=== PATIENT | female | born 1995 | race Caucasian/White ===

== ENCOUNTER → 2018-02-05 13:38 | Outpatient (CLI) | payer MEDICAID, SELFPAY | PROVIDERS: Visit Provider Obstetrics & Gynecology | DX: Z12.4 Encounter for screening for malignant neoplasm of cervix (principal) | CPT/HCPCS: 88175; G0145 ==

== ENCOUNTER → 2018-03-26 10:00 | Outpatient (CLI) | payer MEDICAID, SELFPAY ==
[2018-03-26 11:09] LABS: Hemoglobin 13.4 g/dl (12.0-15.0); Mean Corp Hgb Conc 33.5 g/gl (32-36); Mean Corpuscular Hgb 27.9 pg (27.0-32.0); Mean Corpuscular Volume 83.3 fL (81-99); Mean Platelet Vol. 10.1 fl (6.2-12.0); Platelet Count 238 K/mm3 (150-450); RBC Distribution Width CV 12.6 % (11.6-14.6); RBC Distribution Width SD 38.3 fl (35.1-43.9); White Blood Count 4.2 K/mm3 (4.4-11.0)
[2018-03-26 11:14] LABS: Scan Indicated on CBC? Y/N NO
[2018-03-26 11:56] LABS: Vitamin B12 473 pg/mL (211-911); Vitamin D,25 Hydroxy 29.6 ng/mL (29.95-100.01)
[2018-03-26 11:57] LABS: Free T3 2.6 pg/mL (2.18-3.98); T4 Free Direct 1.03 ng/dL (0.76-1.46); Thyroid Stim Hormone (TSH) 0.79 uIU/mL (0.358-3.74)
== END ==
PROVIDERS: Visit Provider Obstetrics & Gynecology
DX: R53.83 Other fatigue (principal)
CPT/HCPCS: 36415; 82306; 82607; 84439; 84443; 84481; 85027

== ENCOUNTER → 2020-12-07 | Outpatient (CLI) | payer MEDICAID, SELFPAY ==
[2020-12-10 03:07] LABS: Chlamydia By Nucleic Acid AMP Negative (Negative)
[2020-12-10 09:53] LABS: Gonococcus By Nucleic Acid AMP Negative (Negative)
[2020-12-10 15:34] LABS: HPV Reflexed? NOT INDICATED
== END | disposition home or self-care (01) ==
LOC: LABSPEC 13:54
PROVIDERS: Visit Provider Student in an Organized Health Care Education/Training Program
DX: Z12.4 Encounter for screening for malignant neoplasm of cervix (principal); Z11.3 Encounter for screening for infections with a predominantly sexual mode of transmission
CPT/HCPCS: 87491; 87591; 88175; G0145

== ENCOUNTER → 2020-12-21 12:04 | Outpatient (CLI) | payer MEDICAID, SELFPAY ==
[2020-12-21 13:58] LABS: Absolute Lymphocyte Count 1.12 X10^3/uL (0.83-4.51); Absolute Neutrophil Count 4.8 X10^3/uL (2.0-7.7); Basophil# 0.03 X10^3/uL; Basophil% 0.5 % (0-1); Eosinophil# 0.19 X10^3/uL; Eosinophils% 2.9 % (0-5); Hematocrit 36.7 % (37-47); Hemoglobin 12.7 g/dL (12.0-15.0); Lymphocyte # 1.12 X10^3/ul (0.83-4.51); Lymphocyte % 17.4 % (19-41); Mean Corp Hgb Conc 34.6 g/dL (32-36); Mean Corpuscular Hgb 28.9 pg (27.0-32.0); Mean Corpuscular Volume 83.6 fL (81-99); Mean Platelet Vol. 10.6 fl (6.2-12.0); Monocyte% 4.7 % (0-10); NRBC Flagged by Analyzer 0 % (0-5); Neutrophil # 4.79 X10^3/uL (2.7-7.7); Neutrophil % 74.2 % (47-70); Platelet Count 239 K/mm3 (150-450); RBC Distribution Width CV 12.5 % (11.6-14.6); RBC Distribution Width SD 37.9 fl (35.1-43.9); Red Blood Count 4.39 M/mm3 (4.2-5.4); White Blood Count 6.5 K/mm3 (4.4-11.0)
[2020-12-21 14:04] LABS: Color, Urine Yellow (Yellow); Glucose, Dipstick Normal (Normal); Ketone-Dipstick Negative (Negative); Leukocyte Esterase-Dipstick 500 /ul (Negative); Nitrite-Dipstick Negative (Negative); Occult Blood-Urine 10 /ul (Negative); Protein-Dipstick Negative (Negative); Urine Bilirubin Dipstick Negative (Negative); Urine Clarity Sl. Cloudy (Clear); Urine Urobilinogen Normal (Normal)
[2020-12-21 14:19] LABS: Amphetamine Urine VISTA NEGATIVE (<1000 ng/mL); Barbiturate Urine VISTA NEGATIVE (< 200 ng/mL); Benzodiazepine Urine VISTA NEGATIVE (< 200 ng/mL); Cocaine Urine VISTA NEGATIVE (< 300 ng/mL); Ecstacy Urine VISTA NEGATIVE (< 500 ng/mL); Methadone Urine VISTA NEGATIVE (< 300 ng/mL); PCP Urine VISTA NEGATIVE (< 25 ng/mL); THC Urine VISTA NEGATIVE (< 50 ng/mL); Vista UDS pH Range 7
[2020-12-21 14:25] LABS: Thyroid Stim Hormone (TSH) 0.09 uIU/mL (0.358-3.74)
[2020-12-21 14:59] LABS: HIV - WCH Non-Reactive (Nonreactive); Hepatitis B Surface Antigen Non-Reactive (Nonreactive); Hepatitis C Antibody Non-Reactive (Nonreactive); Rubella IgG Reactive (Nonreactive); Syphilis Antibodies Non-reactive
== END ==
PROVIDERS: Visit Provider Obstetrics & Gynecology
DX: Z34.81 Encounter for supervision of other normal pregnancy, first trimester (principal)
CPT/HCPCS: 36415; 80307; 81002; 84439; 84443; 85025; 86703; 86762; 86780; 86803; 87340

== ENCOUNTER → 2021-04-26 12:03 | Outpatient (CLI) | payer MEDICAID, SELFPAY ==
[2021-04-26 13:35] LABS: Hemoglobin 10.5 g/dL (12.0-15.0); Mean Corp Hgb Conc 33.9 g/dL (32-36); Mean Corpuscular Hgb 29.9 pg (27.0-32.0); Mean Corpuscular Volume 88.3 fL (81-99); Mean Platelet Vol. 10.3 fl (6.2-12.0); Platelet Count 215 K/mm3 (150-450); RBC Distribution Width CV 13.6 % (11.6-14.6); RBC Distribution Width SD 43.7 fl (35.1-43.9); Red Blood Count 3.51 M/mm3 (4.2-5.4); White Blood Count 10.1 K/mm3 (4.4-11.0)
[2021-04-26 13:53] LABS: Free T3 2.1 pg/mL (2.18-3.98); Glucose Challenge Gest 1H 50g 95 mg/dL (70-140); T4 Free Direct 0.89 ng/dL (0.76-1.46); Thyroid Stim Hormone (TSH) 0.59 uIU/mL (0.358-3.74)
== END ==
PROVIDERS: Visit Provider Obstetrics & Gynecology
DX: O99.283 Endocrine, nutritional and metabolic diseases complicating pregnancy, third trimester (principal); E03.9 Hypothyroidism, unspecified
CPT/HCPCS: 36415; 82950; 84439; 84443; 84481; 85027

== ENCOUNTER → 2021-06-18 | Outpatient (CLI) | payer MEDICAID, SELFPAY | END | disposition home or self-care (01) | LOC: LABSPEC 15:03 | PROVIDERS: Visit Provider Obstetrics & Gynecology | DX: Z36.85 Encounter for antenatal screening for Streptococcus B (principal) | CPT/HCPCS: 87081 ==

== ENCOUNTER 2021-07-14 03:46 | Inpatient (IN) | payer MEDICAID, SELFPAY ==
[2021-07-14] VITALS (41 sets, daily range): BP systolic 79–181; BP diastolic 53–75; PULSE 72–181; RESP 16; TEMP 36–36.8; O2SAT 81–100; BMI 24.0
[2021-07-14 04:37] LABS: Absolute Neutrophil Count 8.4 X10^3/uL (2.0-7.7); Basophil# 0.03 X10^3/uL; Basophil% 0.3 % (0-1); Eosinophil# 0.25 X10^3/uL; Eosinophils% 2.2 % (0-5); Hemoglobin 12.3 g/dL (12.0-15.0); Lymphocyte % 16.2 % (19-41); Mean Corp Hgb Conc 34.2 g/dL (32-36); Mean Corpuscular Hgb 29.9 pg (27.0-32.0); Mean Corpuscular Volume 87.4 fL (81-99); Monocyte# 0.56 X10^3/uL; NRBC Flagged by Analyzer 0 % (0-5); Neutrophil # 8.36 X10^3/uL (2.7-7.7); Platelet Count 184 K/mm3 (150-450); RBC Distribution Width CV 14.6 % (11.6-14.6); RBC Distribution Width SD 45.8 fl (35.1-43.9); Red Blood Count 4.12 M/mm3 (4.2-5.4); White Blood Count 11.1 K/mm3 (4.4-11.0)
--- NOTE | 2021-07-14 05:20 | HP.PCM.OB_ITS ---
HPI - General General Date of Admission: 07/14/21 HPI Narrative BELL OCONNOR, is a 26 F who presents at 39 6/7 weeks gestation with c/o contractions. Maternal Data Information RICKIE Calculator Estimated Delivery Date Method Current WG Current Estimate 07/15/21 LMP (Certain) 39w 6d PFSH [facility] Medical History (Updated 07/14/21 @ 05:[address] Suma Thomas MD) Superficial varicosities Thyroid disorder Home Medications ferrous sulfate [Iron (ferrous sulfate)] 325 mg PO DAILY 07/14/21 [History Last Taken 07/13/21] [id number] [] 1 tab PO DAILY 07/14/21 [History Last Taken 07/13/21] Allergy/AdvReac Type Severity Reaction Status Date / Time penicillin G Allergy Shortness Verified 07/14/21 04:11 of breath Family History (Updated 07/14/21 @ 05:[address] Suma Thomas MD) Father Hypercholesterolemia Surgical History History of surgery Social History Smoking Status: Never smoker History 3 Elective abortions Hx Para 2 Spontaneous abortions Hx # Term Pregnancies Ectopic pregnancies Hx # Pregnancies Multiple births # of living children 2 NST FHR Rate Baby A Baseline: 135 Variability:: Moderate Accelerations:: 15 x 15 Decelerations:: None NST Reactive:: Yes FHR Category:: Category I Uterine Activity:: 3/10 Vital Signs Vital Signs Vital Signs: 07/14/21 03:53 07/14/21 03:54 07/14/21 04:47 Temperature 98.2 F Temperature Source Temporal Pulse Rate 101 H 72 Blood Pressure 123/75 H 79/53 L BP Systolic 123 79 BP Diastolic 75 53 07/14/21 04:54 07/14/21 05:15 Temperature Temperature Source Pulse Rate 85 85 Blood Pressure 100/63 BP Systolic 100 BP Diastolic 63 Weight Weight: 73.992 kg Body Mass Index (BMI) 24.0 Physical Exam Const alert, oriented x3 and no apparent distress HEENT normocephalic Resp normal respiratory effort, normal air movement and clear to auscultation bilaterally Cardio regular rate and regular rhythm GI normal to inspection, nondistended, normoactive bowel sounds, soft to palpation, non-tender and non-distended Inspection: gravid Narrative: deferred Labs Labs Labs: Blood Type B POSITIVE Antibody Screen Pending Hct 36.0 % (37-47) L Hgb 12.3 g/dL (12.0-15.0) Syphilis Total Ab Non-reactive Rubella IgG Antibody Reactive (Nonreactive) Hep Bs Antigen Non-Reactive (Nonreactive) Neisseria gonorrhoeae DNA (CHAIM) Negative (Negative) HIV 1&2 Antibody Non-Reactive (Nonreactive) Glucose 1 Hr 50 gm 95 mg/dL (70-140) PRIOR DELIVERY HISTORY DEL DATE GEST LAB WT LB WT OZ TYPE ANES LABOR TX 11 Jun 23 39 7 8 0 Vag None No Aug 22 39 12 7 0 Vag None No ANTEPARTUM FLOW CHART VISIT GE RTC FU F F GA U U DATE WK MD WKS HT PN HR M SS BP ED WT GA GL D EF ST __ ____ ___ __ __ ___ __ __ __ ___ __ __ __ ___ __ 07 Jul SHM 1 37 V + + 120/68 0 164 - - 3 50 -3 Jun JM 1 38 V + + 98/64 0 167 tr - Jun SHM 1 36 V + + 118/72 0 163 - - 12 Jun SHM 1 36 V + + 106/60 0 167 ne ne 25 May JM 2 33 V + + 102/60 0 164 - - 11 Jun 06 JM 2 31 V + + 112/64 0 162 - - May 04 SHM 2 28 ? + + 108/56 0 156 tr - Mar 29 JMW 4 24 + + 120/60 0 151 - - Feb 22 SHM 4 19 + + 100/62 0 146 tr - Jan 19 SHM 4 4 + O 110/74 0 145 tr - December 14 SHM 4 on US 94/58 0 139 - - ANTEPARTUM NOTE(S): Jul 13 2021: doing well Jul 05 2021: ctx's, pelvic pressure Jun 25 2021: Contractions present on/off, Declines flu/TDAP, FM- well Jun 18 2021: Feels well, no complaints voiced May 31 2021: occasional cramping/ [place] killian, varicose veins May 17 2021: doing well Apr 26 2021: CBC,OGCT Today,Good FM Mar 24 2021: doing well, glucola given Feb 24 2021: comp u/s today Jan 22 2021: Nausea Dec 21 2020: COMPREHENSIVE ANTEPARTUM NOTE(S): Jul 13 2021: Bell is here for PNV 39w5d she states she is doing well. Positive movement. No edema. She states she is feeling irregular contractions and some pressure. BR Jul 13 2021: No complaints. Declines stripping membranes. Expectant management planned. Discussed risk for stillbirth with advancing gestation over 40+ wga, consider monitoring at 41wga if plans to go over. Labor, FM precautions. Jul 05 2021: Bell is here for a PNV at 38/4. Good FM. No edema present. Denies concerns at this time. Consistent ctx's and pelvic pressure. Declines cervix check. MK Jul 05 2021: 38wks, no complaints. JM Jun 25 2021: GBS reviewed and neg. Pt preregistered already. No concerns. FM, labor precautions. Jun 21 2021: H taken to OB. tkg Jun 19 2021: Entry for 06/18/21: CEPHALIC on US, AYESHA grossly normal. Jun 18 2021: Bell declines LARC, Signed/Dated today, Feeling well, good FM, no edema noted, Jun 18 2021: Requests tub room. Advised to preregister. Labor, ROM, FM precautions. Discussed meds. Plans Vitamin K. DECLINES Hep B vaccine, abx eye ointment. May 31 2021: Bell is here for a PNV at 33 wks. Good FM. No edema present. Occasional cramps/ [place] Killian. Would like to discuss vaginal varicose veins and their effect on labor. Pt states they are very painful and would like to be examined. May 31 2021: 33wk, left labial varicosities. Educated pt on varicosities. May 17 2021: Reviewed FM and siigns and sx of PTL. Encouraged Tdap and Influenza vaccine. LMT May 17 2021: 31wks, family from [place]. 1hr GTT wnl, thyroid wnl on no medications. Discussed tdap vaccine. Apr 26 2021: Glucola, CBC, thyroid studies today for hx likely gestational hyperthyroidism. Good movement. Discussed PPBC, plans condoms. Bought V strap and notes this helps. Feels the baby is very low all the time. Mar 24 2021: Encouraqed Influenza and Tdap vaccines. Glucola given with instructions for next visit. LMT Feb 24 2021: Bell is here for comp u/s and PNV. She is doing well overall. Attempting to wean off the Unisom but still has occ nausea. Advised safe to take Unisom if needed. LMT Feb 24 2021: Anatomy scan today, wnl, EFW 60th%. ANTERIOR PLACENTA. ok for . Plans gender unveil later today. Notes less pressure of vulvar varicosities with compression shorts. Is considering vstrap also. Jan 22 2021: Bell is here for a PNV at 15 wks. Continues to experience nausea/ emesis. Decreased frequency of emesis. Denies spotting/ cramping. No questions expressed at this time. Declines AFP/CF testing. Jan 22 2021: Declines aneuploidy testing today. Feels well, nausea mild, continues Unasom. She feels movement occasionally. Mild musculoskeletal discomforts present and reports return for vaginal varicose veins. Supportive measures including v strap discussed. Dec 21 2020: Bell is her with spouse Kimo for 10 + 4 PNV. Reporting nausea and vomiting. Promethazine made her very dizzy. Has not been taking Vit B 6 as she very nauseated. She is not taking Unisom w/Doxylamine at bedtime. She is drinking plenty of water and is not constipated. She is eating carbs as they do not make her as nauseated as other foods. She has crackers and erick bowen at her bedside that seems Dec 21 2020: US reviewed and confirms [facility] IUP c/w dates. Discussed covid19 related risks and vaccination. Pt declines vaccination. Will obtain Doxylamine otc for nausea. She is able to hold down food in frequent small amounts as well as liquids. FOB scoliosis, however, no family hx genetic d/o otherwise. Declines aneuploidy and carrier screening. Dec 21 2020: NOB Visit. Bell and Kimo are here for a NOB visit at 10 w 4 days w RICKIE 07/15/21 planning a vag del without epidural at [facility] using [facility] and to breastfeed. 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 Kimo is the vice president for instruction at [employer] in [place]. They have daughters ages 5 and 3 y. They're pleased about the pg. Bell is allergic to penicillin Dec 07 2020: Bell is a 25 yr old Gr 3 P2 here for Missed Menses. She is with 2 daughters, 5 and 3 yr olds. By LMP 10/08/20, she would be 8 wks 4 days, RICKIE 07/15/21. Reporting nausea, NO vomiting. Rx given for Promethazine earlier, but this makes her too tired to function. Taking Vit B 6 4 x daily, but this is not helping. Advised to add Unisom w/Doxylamine at bedtime. She is drinking plenty of water Assessment & Plan (1) : QUALIFIERS: Weeks of gestation: 39 weeks Qualified Code(s): Z3A.39 - 39 weeks gestation of PLAN: NST reactive Continue intermittent auscultation now Repeat SVE prn Maternal and statuses reassuring
--- NOTE | 2021-07-14 08:32 | PN.OBGYN_ITS ---
Subjective Subjective Contractions are more intense. Feels urge to push intermittently. Objective Data Objective Data Vital Signs: Vital Signs Temp Pulse BP Pulse Ox 96.8 F L 85 99/55 L 100 07/14/21 07:33 07/14/21 08:05 07/14/21 07:34 07/14/21 08:05 Weight: 73.992 kg Body Mass Index (BMI) 24.0 Lab / Micro Data Result Diagrams: 07/14/21 04:20 Labs: Laboratory Results - last 24 hr 07/14/21 04:20: WBC 11.1 H, RBC 4.12 L, Hgb 12.3, Hct 36.0 L, MCV 87.4, MCH 29.9, MCHC 34.2, RDW Std Deviation 45.8 H, RDW Coeff of Taylor 14.6, Plt Count 184, MPV 10.0, Immature Gran % (Auto) 1.300 H, Neut % (Auto) 75.0 H, Lymph % (Auto) 16.2 L, [place] % (Auto) 5.0, Eos % (Auto) 2.2, Baso % (Auto) 0.3, Absolute Neuts (auto) 8.4 H, Absolute Lymphs (auto) 1.80, Nucleated RBC % 0 07/14/21 04:20: Blood Type B POSITIVE, Antibody Screen NEGATIVE Physical Exam Narrative AVSS GEN - NAD, AAO x 3, breathing throught contractions ABD soft, gravid, NT SVE 8/80/0 NST FHR Rate Baby A Baseline: 128 bpm by Doppler Assessment & Plan (1) : QUALIFIERS: Weeks of gestation: 39 weeks Qualified Code(s): Z3A. 39 - 39 weeks gestation of PLAN: 39 6/7 wga Amniotomy performed with clear fluid Continue intermittent auscultation
[2021-07-14] MEDS: Oxytocin 30 units/NS 500 ml 30 UNITS/500 ML IV.SOLN 334 UNITS IV (09:14)
--- NOTE | 2021-07-14 09:20 | EX.PCM.OBRPT ---
Assessment & Plan (1) : QUALIFIERS: Weeks of gestation: 39 weeks Qualified Code(s): Z3A.39 - 39 weeks gestation of COMMENT: 39 6/7 wga Maternal Data Information RICKIE Calculator Estimated Delivery Date Method Current WG Current Estimate 07/15/21 LMP (Certain) 39w 6d Vaginal Delivery Maternal Presentation Maternal Presentation: Active Labor Operative Information Date of Procedure: 07/14/21 Pre-Operative Diagnosis: 39 6/7 weeks gestation Post-Operative Diagnosis: 39 6/7 weeks gestation Surgery / Procedure Performed: Spontaneous Vaginal Delivery Type of Anesthesia: None Drain: Akers to straight drain Estimated Blood Loss: 250 mL Findings Description of Procedure: patient pushed to deliver a [vigorous] [female] . The was placed on the maternal abdomen and further attended by nursery personnel. The cord was doubly clamped and cut at [7] minutes of life. The placenta delivered spontaneously and appeared intact on inspection. Sponge and needle counts were correct x2. Presentation: Vertex Amniotic Membrane Rupture Type: Artificial Time of Membrane Rupture: 0828h 07/14/21 Amniotic Fluid Description: Clear Placental Delivery Description: Spontaneous Placenta Disposition: [facility] Cord Vessel Description: 3 Vessels Cord Entanglement: None A Gender: Female (1 minute): 9 (5 minute): 9 Delayed Cord Clamping: Yes Post Vaginal Delivery Medications Given After Delivery: IV Pitocin Episiotomy Description: None Laceration: None Complication Complications: None
[2021-07-14] MEDS: Ibuprofen 600 MG Tablet PO ×2 (09:51→21:25)
[2021-07-14] MEDS: 0.9% Saline Lock 10 ML Syringe IV (12:09)
[2021-07-14] MEDS: Prenatal Vits Tablet 1 TABLET PO (19:29)
[2021-07-15] VITALS (8 sets, daily range): BP systolic 95–106; BP diastolic 54–67; PULSE 71–98; RESP 15–18; TEMP 36.3; O2SAT 100
--- NOTE | 2021-07-15 07:01 | PCM.DC ---
Discharge Instructions Diet Discharge Diet: No restrictions Activity Discharge Activity: Return to Normal Activity and May Drive May resume sexual activity in: 4-6 weeks Weight Bearing Status: Weight bearing as tolerated Dressing / Incision Call your doctor if your incision/area has: Continuous Slow Oozing and Foul Smelling Discharge Call your doctor if you observe: Fever of 101 or Higher, Shortness of breath and Chest pain Follow Up Care Please Follow Up With: Kimo Shipley MD When: 2 week telehealth, 4-6 weeks Test Results: Test results from this visit will be discussed in further detail at your follow-up appointment, if applicable. Discharge Plan Admission Admit Date/Time: 07/14/21 03:46 Attending Provider: Suma Montero Discharge Orders/Prescriptions Prescriptions: No Action ferrous sulfate [Iron (ferrous sulfate)] 325 mg (65 mg iron) Tablet 325 mg PO DAILY RF: 0 1 mg Tablet 1 tab PO DAILY RF: 0 Disposition Discharge Orders: Discharge Patient (Routine); Ordered 07/15/21 Ordered By: Dr. Kimo Shipley
--- NOTE | 2021-07-15 07:02 | PN.OBGYN_ITS ---
Subjective Subjective No overnight complaints. Objective Data Objective Data Vital Signs: Vital Signs Temp Pulse Resp BP Pulse Ox 97.3 F L 71 18 103/59 L 99 07/15/21 03:52 07/15/21 03:52 07/15/21 03:52 07/15/21 03:52 07/14/21 11:18 Oxygen Delivery Method Room Air Weight: 163 lb 2 oz Body Mass Index (BMI) 24.0 Intake & Output: Intake and Output for Last 24 Hours 07/13/21 07/14/21 07/15/21 23:59 23:59 23:59 Intake Total 500 / 500 Output Total 300 / 300 Balance 200 / 200 Lab / Micro Data Result Diagrams: 07/14/21 04:20 Physical Exam Const alert, oriented x3, no apparent distress, average body habitus, healthy appearing and well nourished HEENT normocephalic and moist oral mucous membranes Head and Scalp: atraumatic Face and Sinus: normal facial exam Eyes PERRL Neck full ROM Resp normal respiratory effort, no retractions and no use of accessory muscles GI normal to inspection, nondistended, normoactive bowel sounds GI Narrative: Uterus firm and below umbilicus Extremity normal to inspection and no clubbing, cyanosis or edema Psych mental status grossly normal, affect normal, speech normal and activity/motor behavior normal Assessment & Plan (1) : QUALIFIERS: Weeks of gestation: 39 weeks Qualified Code(s): Z3A.39 - 39 weeks gestation of PLAN: day 1. Breast-feeding. Pain well controlled. Okay to discharge home if okay with digital sales executive
[2021-07-15] MEDS: Prenatal Vits Tablet 1 TABLET PO (11:51)
--- NOTE | 2021-07-15 12:48 | NURSING ---
This nursing aide reviewed the documentation completed by Kim Perez, student nurse from [facility].
== END 2021-07-15 12:15 | disposition home or self-care (01) | DRG 560 ==
LOC: WPOUT 03:48 → WP 04:11
PROVIDERS: Admitting Provider Obstetrics & Gynecology; Visit Provider Obstetrics & Gynecology
DX: O80 Encounter for full-term uncomplicated delivery (principal); Z3A.39 39 weeks gestation of pregnancy; Z37.0 Single live birth
CPT/HCPCS: 59025; 59050; 76815; 85025; 86850; 86900; 86901; 99218; A4216; G0378

== ENCOUNTER → 2022-12-09 | Outpatient (CLI) | payer BC, MEDICAID, SELFPAY ==
[2022-12-09 16:16] LABS: Absolute Lymphocyte Count 1.74 X10^3/uL (0.83-4.51); Absolute Neutrophil Count 5.6 X10^3/uL (2.0-7.7); Basophil# 0.03 X10^3/uL; Basophil% 0.4 % (0-1); Eosinophil# 0.46 X10^3/uL; Eosinophils% 5.6 % (0-5); Hematocrit 36.2 % (37-47); Hemoglobin 12.6 g/dL (12.0-15.0); Lymphocyte # 1.74 X10^3/ul (0.83-4.51); Lymphocyte % 21.1 % (19-41); Mean Corp Hgb Conc 34.8 g/dL (32-36); Mean Corpuscular Hgb 28.4 pg (27.0-32.0); Mean Corpuscular Volume 81.7 fL (81-99); Mean Platelet Vol. 10.2 fl (6.2-12.0); Monocyte# 0.37 X10^3/uL; Monocyte% 4.5 % (0-10); NRBC Flagged by Analyzer 0 % (0-5); Platelet Count 226 K/mm3 (150-450); RBC Distribution Width CV 12.5 % (11.6-14.6); RBC Distribution Width SD 37.3 fl (35.1-43.9); Red Blood Count 4.43 M/mm3 (4.2-5.4); White Blood Count 8.2 K/mm3 (4.4-11.0)
[2022-12-09 17:15] LABS: HIV - WCH Non-Reactive (Nonreactive); Hepatitis B Surface Antigen Non-Reactive (Nonreactive); Hepatitis C Antibody Non-Reactive (Nonreactive); Rubella IgG Reactive (Nonreactive); Syphilis Antibodies Non-reactive
[2022-12-11 08:08] LABS: V-Zoster IgG (Immunity) > 4000 index (Immune >165)
== END | disposition home or self-care (01) ==
LOC: WOBLAB 15:24
PROVIDERS: Visit Provider Obstetrics & Gynecology
DX: Z34.81 Encounter for supervision of other normal pregnancy, first trimester (principal)
CPT/HCPCS: 36415; 85025; 86703; 86762; 86780; 86787; 86803; 87086; 87088; 87340

== ENCOUNTER 2023-07-16 14:10 | Inpatient (IN) | payer BC, MEDICAID, SELFPAY ==
[2023-07-16] VITALS (18 sets, daily range): BP systolic 97–127; BP diastolic 49–77; PULSE 77–95; RESP 15–16; TEMP 36.1–36.7; O2SAT 97–98; BMI 27.5
[2023-07-16] MEDS: Lactated Ringers 1,000 ML 50 ML IV (14:25)
[2023-07-16 14:40] LABS: Absolute Lymphocyte Count 1.59 X10^3/uL (0.83-4.51); Absolute Neutrophil Count 8.9 X10^3/uL (2.0-7.7); Basophil# 0.01 X10^3/uL; Basophil% 0.1 % (0-1); Eosinophil# 0.23 X10^3/uL; Hematocrit 35.7 % (37-47); Hemoglobin 12.5 g/dL (12.0-15.0); Lymphocyte # 1.59 X10^3/ul (0.83-4.51); Lymphocyte % 14.1 % (19-41); Mean Corpuscular Hgb 30.6 pg (27.0-32.0); Mean Corpuscular Volume 87.3 fL (81-99); Mean Platelet Vol. 10.2 fl (6.2-12.0); Monocyte# 0.45 X10^3/uL; NRBC Flagged by Analyzer 0 % (0-5); Neutrophil # 8.92 X10^3/uL (2.7-7.7); Neutrophil % 79.2 % (47-70); Platelet Count 259 K/mm3 (150-450); RBC Distribution Width CV 14.1 % (11.6-14.6); RBC Distribution Width SD 44.8 fl (35.1-43.9); Red Blood Count 4.09 M/mm3 (4.2-5.4); White Blood Count 11.3 K/mm3 (4.4-11.0)
[2023-07-16] MEDS: Vancomycin HCl 1,750 MG in 0.9% Normal Saline (500mL Bag) 500 ML 250 MG IV (15:14)
[2023-07-16 15:45] LABS: Syphilis Antibodies Non-reactive
--- NOTE | 2023-07-16 16:07 | PCM.HP.OB ---
HPI - General General Date of Admission: 07/16/23 HPI Narrative REED OCONNOR, is a 28 F @ 39.5 weeks who presents c/o ctx, found to be 5cm, ctx every 2min on arrival. pt with LGA fetus EFW 10# , largest baby was 8+lbs. pt denies SROM. pt offers no other concerns. PFSH PFSH Medical History (Updated 07/16/23 @ 16:[address] Renate Jeronimo MD) depression Superficial varicosities Thyroid disorder Home Medications ferrous sulfate 325 mg (65 mg iron) tablet (Iron (ferrous sulfate)) 325 mg PO DAILY 07/14/21 [History Last Taken 07/13/21] [id number] 1 mg tablet 1 tab PO DAILY 07/14/21 [History Last Taken 07/13/21] Allergy/AdvReac Type Severity Reaction Status Date / Time penicillin G Allergy Shortness Verified 07/16/23 14:14 of breath Family History (Updated 07/14/21 @ 05:[address] Suma Thomas MD) Father Hypercholesterolemia Surgical History History of surgery Social History Smoking Status: Never smoker History 3 Elective abortions Hx Para 3 Spontaneous abortions Hx # Term Pregnancies Ectopic pregnancies Hx # Pregnancies Multiple births # of living children 2 Vital Signs Vital Signs Vital Signs: 07/16/23 14:01 07/16/23 14:01 07/16/23 14:03 Temperature Temperature Source Temporal Pulse Rate 95 Blood Pressure 127/77 H BP Systolic 127 BP Diastolic 77 07/16/23 14:03 Temperature 97.2 F L Temperature Source Pulse Rate Blood Pressure BP Systolic BP Diastolic Weight Weight: 82.1 kg Body Mass Index (BMI) 27.5 Physical Exam Narrative upon my arrival patient was 9/90/0 AROM performed Clear fluid. Const alert and oriented x3 General Appearance: cooperative HEENT normocephalic GI GI Narrative: Gravid, non tender to palpation. OB / External & Speculum: external exam normal Extremity normal to inspection Skin no rashes or lesions noted Neuro oriented x3 and CN's II-XII intact bilaterally Psych Appearance: grossly normal Labs Labs Labs: Blood Type B POSITIVE Antibody Screen NEGATIVE Hct 35.7 % (37-47) L Hgb 12.5 g/dL (12.0-15.0) Syphilis Total Ab Non-reactive VZV IgG Antibody > 4000 index (Immune >165) Rubella IgG Antibody Reactive (Nonreactive) Hep Bs Antigen Non-Reactive (Nonreactive) Hepatitis C Antibody Non-Reactive (Nonreactive) Chlamydia DNA (CHAIM) Negative (Negative) N.gonorrhoeae DNA (CHAIM) Negative (Negative) HIV 1&2 Antibody Non-Reactive (Nonreactive) Glucose 1 Hr 50 gm 95 mg/dL (70-140) Rhogam given: No Assessment & Plan (1) LGA (large for gestational age) fetus: (2) with care elsewhere: (3) Positive GBS test: (4) 39 weeks gestation of : PLAN: Plan Admit to L&D Montior FHR/TOCO Epidural if requested for pain Monitor VS Anticipate pt was counseled on risks of delivery with LGA- pt was previously offered primary cs- declined. Will have PEDS present for delivery. GBS prophylaxis with VACNO
[2023-07-16] MEDS: Oxytocin 10 UNITS/ML Vial IM (16:28)
[2023-07-16] MEDS: Oxytocin 15 Units/NS 250ml 15 UNITS/250 ML IV.SOLN 83 UNITS IV (16:30)
--- NOTE | 2023-07-16 16:30 | PCM.RX.CS ---
Consult Antibiotic Management Pharmacy has been consulted to manage selected antiobiotic: Vancomycin Type of Intervention Type of Consult: New start Suspected Infection Suspected Infection: Other (GBS PPX) Prior Doses of Antibiotics Prior Doses of Antibiotics Received/Current Regimen: Vancomycin 1750 mg IV given 07/16/23 @ 1514 Dosing Weight Weight used for dosin.1 kg Goal Trough Goal Trough: 10-15 mcg/mL Pharmacy Plan for Drug Dosing Pharmacy Plan for Drug Dosing: Vancomycin 1750 mg Q8H, trough prior to 4th dose for GBS ppx, will order serum creatinine to ensure appropriate dosing. Pharmacy Service will continue to monitor and adjust dosing as required. Follow-Up Labs Follow-Up Labs: Trough: Vancomycin Date/Time Labs Ordered Labs to be done on [date and time ordered]: 07/17/23 @ 1430
--- NOTE | 2023-07-16 16:35 | OP.PCM_ITS ---
Vaginal Delivery Operative Information Date of Procedure: 07/16/23 Pre-Operative Diagnosis: 39 weeks, labor, GBS positive, LGA, care elsewhere Post-Operative Diagnosis: same, live male infant Surgery / Procedure Performed: Spontaneous Vaginal Delivery Type of Anesthesia: None Estimated Blood Loss: 50 Time of Delivery: 16:25 Findings Description of Procedure: Regressed to fully dilated. She was in hands and knees position feeling the urge to bear down. Public Relations Analyst was present in the room for delivery due to LGA. In the hands and knees position 's head was delivered followed by the anterior shoulder and the rest the 's body delivered without complication. The was vigorous at time of delivery. Delayed cord clamping was performed for 60 seconds. At this time IM Pitocin and IV Pitocin was started per protocol. Patient was then placed in the supine position and inspection of the vaginal and perineal tissue revealed no lacerations. The placenta was then delivered intact without complication. Again inspection revealed no lacerations. Presentation: Vertex Amniotic Fluid Description: Clear Placental Delivery Description: Spontaneous Placenta Disposition: [facility] Specimen(s) Removed: placenta Cord Vessel Description: 3 Vessels Cord Entanglement: None Infant A Gender: Male (1 minute): 8 (5 minute): 9 Delayed Cord Clamping: Yes Post Vaginal Delivery Medications Given After Delivery: IV Pitocin and IM Pitocin Episiotomy Description: None Laceration: None Complication Complications: None
[2023-07-16] MEDS: Ibuprofen 600 MG Tablet PO (17:20)
[2023-07-16] MEDS: Acetaminophen 500 MG Tablet 1000 MG PO (22:12)
[2023-07-17] VITALS (9 sets, daily range): BP systolic 99–109; BP diastolic 57–66; PULSE 78–88; RESP 16; TEMP 36.1–36.7; O2SAT 97–99
--- NOTE | 2023-07-17 08:55 | PN.OBGYN_ITS ---
Subjective Subjective Pain well controlled, average lochia. Objective Data Objective Data Vital Signs: Vital Signs Temp Pulse Resp BP Pulse Ox O2 Del Method 97.7 F L 80 16 107/66 98 Room Air 07/17/23 08:00 07/17/23 08:00 07/17/23 08:00 07/17/23 08:00 07/17/23 08:00 07/17/23 08:00 Oxygen Delivery Method Room Air Weight: 82.1 kg Body Mass Index (BMI) 27.5 Intake & Output: Intake and Output for Last 24 Hours 07/15/23 07/16/23 07/17/23 23:59 23:59 23:59 Intake Total 311 / 311 Output Total 50 / 50 Balance 261 / 261 Lab / Micro Data 07/16/23 14:25 Labs: Laboratory Results - last 24 hr 07/16/23 14:25: WBC 11.3 H, RBC 4.09 L, Hgb 12.5, Hct 35.7 L, MCV 87.3, MCH 30.6, MCHC 35.0, RDW Std Deviation 44.8 H, RDW Coeff of Taylor 14.1, Plt Count 259, MPV 10.2, Immature Gran % (Auto) 0.600, Neut % (Auto) 79.2 H, Lymph % (Auto) 14.1 L, [place] % (Auto) 4.0, Eos % (Auto) 2.0, Baso % (Auto) 0.1, Absolute Neuts (auto) 8.9 H, Absolute Lymphs (auto) 1.59, Nucleated RBC % 0, Syphilis Total Ab Non-reactive, Blood Type B POSITIVE, Antibody Screen NEGATIVE Physical Exam Const alert and no apparent distress Narrative: Fundus firm, below umbilicus. Assessment & Plan (1) (spontaneous vaginal delivery): PLAN: PPD#1 s/p . Patient . Desires d/c home today if ok w/ pds
[2023-07-17] MEDS: Ibuprofen 600 MG Tablet PO (11:09)
--- NOTE | 2023-07-17 14:06 | DS.PCM_ITS ---
Providers Date of Admission: 07/16/23 Reason For Visit: VAGINAL DELIVERY Diagnosis Discharge Diagnosis (1) (spontaneous vaginal delivery): Status: Acute Code(s): O80 - Encounter for full-term uncomplicated delivery Plan: PPD#1 s/p . Patient . Desires d/c home today if ok w/ pds Medications at Discharge Home Medications ferrous sulfate 325 mg (65 mg iron) tablet (Iron (ferrous sulfate)) 325 mg PO DAILY 07/14/21 [id number] 1 mg tablet 1 tab PO DAILY 07/14/21 Hospital Course Operations None Procedures None Summary of Care Provided Minutes Spent on Discharge: 13 Hospital Course: Patient was admitted 07/16/2023 in active labor. She has spontaneous vaginal delivery without complication. By day #1 she was doing well. Patient desired discharge home. was breast-feeding. Weight / BMI Weight Weight: 82.1 kg Body Mass Index (BMI) 27.5 ABG / Lab / Microbiology Data 07/16/23 14:25 Laboratory: Laboratory Results - last 24 hr 07/16/23 14:25: WBC 11.3 H, RBC 4.09 L, Hgb 12.5, Hct 35.7 L, MCV 87.3, MCH 30.6, MCHC 35.0, RDW Std Deviation 44.8 H, RDW Coeff of Taylor 14.1, Plt Count 259, MPV 10.2, Immature Gran % (Auto) 0.600, Neut % (Auto) 79.2 H, Lymph % (Auto) 14.1 L, [place] % (Auto) 4.0, Eos % (Auto) 2.0, Baso % (Auto) 0.1, Absolute Neuts (auto) 8.9 H, Absolute Lymphs (auto) 1.59, Nucleated RBC % 0, Syphilis Total Ab Non-reactive, Blood Type B POSITIVE, Antibody Screen NEGATIVE D/C Instructions May resume sexual activity in: 6 weeks Please Follow Up With: Nathaly Peter CNM When: Follow up with our office in 1-2 and 6 weeks or as needed. Call [phone] or send a [employer] message to schedule. Meaningful Use Info Meaningful Use Diagnoses (Choose all that apply): None applicable Discharge Plan Admission Admit Date/Time: 07/16/23 14:10 Primary Reason for Your Visit: Vaginal delivery Attending Provider: Renate Jeronimo Discharge Orders/Prescriptions Prescriptions: No Action ferrous sulfate [Iron (ferrous sulfate)] 325 mg (65 mg iron) Tablet 325 mg PO DAILY 1 mg Tablet 1 tab PO DAILY Disposition Disposition (needs filled in before D/C Order can be placed): Home, Self Care
--- NOTE | 2023-07-17 14:14 | CASEMGMT ---
Social Work Assessment Labor and Delivery Unit Patient Address: [address] [place] [address] Phone number: [phone] Date of Referral: 07/17/23 Time of Referral: 0203? Referred By: Renate Issa Date of Intervention: ??07/17/23 Time of Intervention:? 1345 Reason for Referral:? PPD Sw completed chart review and acknowledges social work consult entered due to maternal history of depression. Sw presented to bedside and introduced self to mother of baby (EDMUNDO- Bell) and father of baby (FOB- Kimo). Sw explained reason for sw involvement, completed psychosocial assessment and asked MOB to complete Jennings Depression Scale. History obtained from: medical records, MOB and FOB Household composition: Currently residing in the home is MANGO WYATT, their three older children: Goldie, Silvia and Vane, and now baby. Parents state they have no issues or concerns with their housing- which is safe and secure. Patient's parent/guardian status:? ?EDMUNDO states that she and MANGO have been for almost 10 years. Parents state that they met while going to college. No concerns reported of domestic violence or intimate partner violence. Medical History: ?EDMUNDO is 28 year old female who is 4, para 3- now 4 following labor and delivery of baby. EDMUNDO received routine care during with [facility]. EDMUNDO presented to hospital and delivered baby via vaginal delivery at 39 weeks gestation. Baby boy, not named at this time, was born weighing 9lb and his apgars were 8 and 9 at one and five minutes of life respectfully. Baby will be followed by [facility] [place]. Educational Status:? Both parents obtained college degrees and deny any issues with reading, learning or comprehension. Financial Status: MANGO is gainfully employed outside of the home, he works for an [employer] and on Sundays is a product safety compliance leader at a denominational. EDMUNDO is a stay at home mom. Infant Supplies:?? Parents have obtained all necessary baby supplies including: car seat, safe sleep space, clothes, diapers and wipes. Childcare/Caregiver(s):? EDMUNDO states that she is a stay at home mom and will be the primary caregiver to baby. MOB states that her mom is here for two weeks to help with baby and other three children. Transportation:?? Parents have their drivers license and reliable means of transportation. NO transportation barriers at this time. Programs/Agencies Involved: EDMUNDO states that the only resource she is connected to at this time is [employer] during . ??? Children Services/Legal Issues:??? No history of involvement, no issues or concerns warranting a referral to be made at this time. Behavioral Health Issues: ??Mental Health History:?MANGO denies any mental health diagnoses at this time. MOB states that she has not been diagnosed with anxiety or depression, but has a history of depression. MOB states that after the of her second child she experienced bouts of extreme depression where she was crying a lot of the time and disinterested in doing things that she used to enjoy. MOB stated that she got connected to a counselor at that time. MOB stated that she has talked to her OBGYN following this / delivery to see if there is anything she can do to be proactive. EDMUNDO stated that she is receptive to medications if her OBGYN feels that would be beneficial for her. MOB completed Jennings Depression Scale, her score was a 8. Sw provided support and education regarding MOB test result. ?? Substance Use History:??MOB denies substance use prior to and during . Family History:??MOB and FOB deny family history of addiction or mental health diagnoses. ??? Drug Screens: No urine screens observed during chart review. ?? Family/Social Stressors:? MOB denies any current stressors or concerns. Support Systems: EDMUNDO states that FOChristy is her biggest support person, along with her mom. Depression/Shaken Baby/Safe Sleeping:? Sw educated parents on signs and symptoms of baby blues and depression. MOB and FOB expressed understanding. Sw educated parents on shaken baby prevention and ABCs of safe sleep. Parents express understanding. FOB stated that he feels he would be able to recognize symptoms MOB would have if she were struggling with her journey. FOB stated that he also feels as though he would know how to be supportive and help MOB if she were to struggle. ASSESSMENT:? MOB and baby currently admitted following labor and delivery of . MOB and FOB engaged in conversation during completion of psychosocial assessment. MOB would divert eye contact to FOB when answering questions, and would ask FOB for agreement or validation of her answers. MOB appeared to provide appropriate and loving hands on care of . Parents aware of signs and symptoms of baby blues and depression/ anxiety to be on the lookout for. Parents have obtained all necessary baby supplies and have adequate supports in place. PLAN:? MOB and baby to be discharged when medically ready. ?No other services requested or indicated. Camille Barlow, CONTRACT ADMINISTRATION SPECIALIST, HULL INSPECTOR
== END 2023-07-17 17:30 | disposition home or self-care (01) | DRG 560 ==
LOC: WPPAT 14:18 → WP 14:18
PROVIDERS: Admitting Provider Obstetrics & Gynecology; Visit Provider Obstetrics & Gynecology
DX: O99.824 Streptococcus B carrier state complicating childbirth (principal); Z37.0 Single live birth; O36.63X0 Maternal care for excessive fetal growth, third trimester, not applicable or unspecified; Z3A.39 39 weeks gestation of pregnancy
CPT/HCPCS: 59025; 59050; 85025; 86780; 86850; 86900; 86901; 99221; J7040; J7120; G0378